=== PATIENT | female | born 1960 ===

== ENCOUNTER 2016-06-21 16:48 | Emergency (ER) | payer OTHER ==
[2016-06-21 17:01] VITALS: TEMP 97.9
[2016-06-21] MEDS ORDERED: HYDROmorphone 1 MG/ML 1 ML SYRINGE IM STA ×2 (17:46→19:51)
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
[2016-06-21 19:46] VITALS: BP 148/87; PULSE 74; RESP 16
== END 2016-06-21 20:00 | disposition home or self-care (01) ==
LOC: EC 16:48
DX: S16.1XXA Strain of muscle, fascia and tendon at neck level, initial encounter (principal); S20.219A Contusion of unspecified front wall of thorax, initial encounter; M54.6 Pain in thoracic spine; M25.511 Pain in right shoulder; M25.512 Pain in left shoulder; Z91.09 Other allergy status, other than to drugs and biological substances; V47.5XXA Car driver injured in collision with fixed or stationary object in traffic accident, initial encounter; Y92.411 Interstate highway as the place of occurrence of the external cause
CPT/HCPCS: 99284 ×2; 96372 ×3; 93005; 71020; 71120; 72040; J1170